=== PATIENT | female | born 1990 | race Caucasian/White ===

== ENCOUNTER 2017-01-10 00:05 | Inpatient (IN) | payer OTHER ==
[~2017-01-10] VITALS: Ht 165.1 cm; Wt 73.0 kg
[~2017-01-10 00:05] MED LIST: ACETAMINOPHEN325 M1 PO; BENADRYL25 MG PO; ONDANSETRON HCL4 MG PO
[2017-01-10] MEDS ORDERED: CYCLOBENZAPRINE10 MG PO (00:20)
[2017-01-10] MEDS ORDERED: VITAFOL-OB+DHA1 EACH PO (00:20)
--- NOTE | 2017-01-10 15:54 | PR ---
[facility] [address] [facility] [place], [place] [address] Signed Progress Notes IP Datetime Report Generated by CPHunter: 01/10/2017 15:54 PROGRESS NOTES: [id number] Impression: Slow Progression of Labor Procedures: Artificial ROM; Sterile Vag Exam; Epidural Placement Plan: Continue present management Informed Consent Obtain: Vaginal Delivery; Risks, Benefits and Alternatives Discussed VITAL SIGNS: [id number] Vital Signs: Reviewed; Within Normal Limits EXAM: [id number] Dilatation: 4.0 Effacement: 70 Station: -2 Uterine Contractions: every one to two minutes MEMBRANES: [id number] Membrane Status: Bulging ROM Note: amniotomy performed - clear and copious amounts of fluid Comments: patient is comfortable after epidural placement. status is reassuring Fetus A: [id number] FHR Baseline: 130's Variability: Moderate 6-25bpm Accelerations: 15X15 Decelerations: None FHR Category: Category I Presentation: Vertex Comments on Fetus A: reactive Fetus B: [id number] Signing Physician: Rosemarie Tijerina MD CC: *Electronically Signed* 01/10/17 1554 ROSEMARIE TIJERINA MD PATIENT NAME: DON ORTA PROGRESS NOTE DATE OF : 89 PHYSICIAN: ROSEMARIE TIJERINA MD RPT #: [id number] REPORT IS CONFIDENTIAL AND NOT TO BE RELEASED WITHOUT AUTHORIZATION
--- NOTE | 2017-01-10 16:06 | PR ---
[facility] [address] [facility] [place], [place] [address] Signed Progress Notes IP Datetime Report Generated by CPHunter: 01/10/2017 16:06 PROGRESS NOTES: [id number] Impression: Slow Progression of Labor Procedures: Intrauterine Pressure Catheter; Scalp Electrode; Sterile Vag Exam Plan: Continue present management Informed Consent Obtain: Vaginal Delivery VITAL SIGNS: [id number] Vital Signs: Reviewed; Within Normal Limits EXAM: [id number] Dilatation: 4.0 Effacement: 80 Station: -2 Uterine Contractions: every one to three minutes MEMBRANES: [id number] Membrane Status: Ruptured Amniotic Fluid Color: Clear ROM Note: amniotomy performed - clear and copious amounts of fluid Comments: patient remains comfortable with epidural, able to move her legs well Fetus A: [id number] FHR Baseline: 130's Variability: Moderate 6-25bpm Accelerations: 15X15 Decelerations: None FHR Category: Category I Presentation: Vertex Comments on Fetus A: reactive Fetus B: [id number] Signing Physician: Rosemarie Tijerina MD CC: *Electronically Signed* 01/10/17 1606 ROSEMARIE TIJERINA MD PATIENT NAME: DON ORTA PROGRESS NOTE DATE OF : 91 PHYSICIAN: ROSEMARIE TIJERINA MD RPT #: [id number] REPORT IS CONFIDENTIAL AND NOT TO BE RELEASED WITHOUT AUTHORIZATION
--- NOTE | 2017-01-11 09:20 | PR ---
[facility] [address] [facility] [place], [place] [address] Signed PP Progress Notes Datetime Report Generated by CPN: 01/11/2017 09:20 SUBJECTIVE: [id number] Pain: Within normal limits Nausea/Vomiting: Denies Flatus: Yes Bowel Movement: No Vital Signs: [id number] Vital Signs: Reviewed; Within Normal Limits EXAM: [id number] Cardiovascular: Normal Respiratory: Normal Abdomen/Uterus: Normal Lochia: Normal Vulva/Perineum: Normal Breasts: Normal CVA Tenderness: Normal Extremities: Normal Incision: Not Applicable Progress: Normal IMPRESSION/PLAN/PROCEDURES: [id number] Impression: Normal progression Plan: consult Procedures: None Progress Notes: patient doing well. Wanting to smoke. Will make border status Signing Physician: Rosemarie Tijerina MD CC: *Electronically Signed* 01/11/17919 ROSEMARIE TIJERINA MD PATIENT NAME: DON ORTA PROGRESS NOTE DATE OF : 91 PHYSICIAN: ROSEMARIE TIJERINA MD RPT #: [id number] REPORT IS CONFIDENTIAL AND NOT TO BE RELEASED WITHOUT AUTHORIZATION
== END 2017-01-11 09:45 | disposition home or self-care (01) | DRG 775 ==
LOC: FBC 00:05 → MS 01-11 → FBC 01-11 00:12
PROVIDERS: ADMIT Obstetrics & Gynecology
PROC: 3E033VJ Introduction of Other Hormone into Peripheral Vein, Percutaneous Approach (ICD-10-PCS; principal; 2017-01-10)
PROC: 10E0XZZ Delivery of Products of Conception, External Approach (ICD-10-PCS; principal; 2017-01-10)
PROC: 10907ZC Drainage of Amniotic Fluid, Therapeutic from Products of Conception, Via Natural or Artificial Opening (ICD-10-PCS; principal; 2017-01-10)
PROC: 00HU33Z Insertion of Infusion Device into Spinal Canal, Percutaneous Approach (ICD-10-PCS; principal; 2017-01-10)
PROC: 3E0R3CZ (ICD-10-PCS; principal; 2017-01-10)
DX: O99.02 Anemia complicating childbirth (principal); O69.81X0 Labor and delivery complicated by cord around neck, without compression, not applicable or unspecified; O99.334 Smoking (tobacco) complicating childbirth; O70.0 First degree perineal laceration during delivery; F17.210 Nicotine dependence, cigarettes, uncomplicated; Z3A.39 39 weeks gestation of pregnancy; Z37.0 Single live birth
CPT/HCPCS: 01960; 36415; 85027; 99406; J2590; J2795; J3010; J7120